=== PATIENT | male | born 1950 | race Caucasian/White ===

== ENCOUNTER 2023-04-25 19:17 | Emergency (ER) | payer MEDICARE, SELFPAY ==
[2023-04-25 19:18] VITALS: BP 125/85; PULSE 76; RESP 16; TEMP 36.9; O2SAT 98; BMI 25.7
--- NOTE | 2023-04-25 19:36 | EDS_ITS ---
HPI History of Present Illness Chief Complaint: Upper Extremity Injury Narrative Narrative: 72-year-old male past medical history of hypercholesterolemia and benign prostatic hypertrophy presents with injury to his right middle finger that he sustained at around 10 AM, approximately 9 hours ago. He states that he was moving boulders to arrange them in a [place] for a fire pit, when he lifted a Day and it crushed his middle finger against another Day. He is right- hand dominant. He has pain and swelling mainly in the distal third of his right middle finger. He denies other injury. No laceration. He natacha taped his fingers together and took Tylenol approximately 1 hour prior to arrival. [facility] Medical History BPH (benign prostatic hyperplasia) High cholesterol Home Medications saw palmetto 160 mg capsule 160 mg PO DAILY 10/21/20 [History Last Taken Unknown] atorvastatin 10 mg tablet 10 mg PO DAILY 04/25/23 [History Last Taken Unknown] cholecalciferol (vitamin D3) 25 mcg (1,000 unit) capsule (Vitamin D3) 25 mcg PO QODAY 04/25/23 [History Last Taken Unknown] finasteride 5 mg tablet 5 mg PO DAILY 04/25/23 [History Last Taken Unknown] omega 4-zsk-jky-fish oil 1,200 mg (144 mg-216 mg) capsule (Fish Oil) 1 cap PO DAILY 04/25/23 [History Last Taken Unknown] tamsulosin 0.4 mg capsule 0.4 mg PO DAILY 04/25/23 [History Last Taken Unknown] Allergy/AdvReac Type Severity Reaction Status Date / Time Penicillins Allergy Intermediate unknown Verified 04/25/23 19:21 Surgical History H/O colonoscopy H/O prostate biopsy Social History Smoking Status: Never smoker alcohol intake: current alcohol intake frequency: a few times a month ROS ROS ED ROS Narrative Constitutional: No fever, no chills. HEENT: No sore throat. No neck pain. No loss of vision. No rhinorrhea. Cardiovascular: No chest pain. No palpitations. No pedal edema. Respiratory: No cough, no shortness of breath. Abdominal: No abdominal pain. No nausea. No vomiting. Genitourinary: No dysuria. No hematuria. Musculoskeletal: No myalgias. Right middle finger pain, swelling, and bruising. Neurologic: No headaches. No dizziness. No lightheadedness. Skin: No rash. No change in color. Psychiatric: No depression. No anxiety. EXAM Physical Exam Narrative Exam Narrative: Afebrile. Vital signs noted. HEENT: Normocephalic. Atraumatic. PERRL, EOMI. Neck soft and supple. No point tenderness or step off. Cardiovascular: Regular rate and rhythm. No murmurs, rubs, or gallops appreciated. Respiratory: No tachypnea. Lungs clear to auscultation bilaterally. Gastrointestinal: Abdomen soft, nontender, with normoactive bowel sounds. No rebound or guarding. Neurological: Awake. Alert. Nonfocal, nonlateralizing. Skin: No rash. Normal color. No pallor. Musculoskeletal: No pedal edema. Positive tenderness to palpation right middle finger distal and middle phalanx with noted ecchymosis and swelling. Range of motion at DIP joint is limited secondary to swelling and pain. No subungual hematoma noted. Good capillary refill. No metacarpal tenderness. Palpable radial pulse. Const Vital Signs: 04/25/23 19:18 Temperature 98.5 F Temperature Source Temporal Pulse Rate 76 Respiratory Rate 16 Blood Pressure 125/85 H Blood Pressure Mean 98 Pulse Ox 98 MDM MDM MDM Narrative Medical decision making narrative: Concern is for finger contusion versus fracture. Patient has already taken analgesics. X-rays were obtained of the right middle finger in 3 views and interpreted by myself independently. There is evidence of, noted tuft fracture. I reviewed the radiology report which confirms my independent interpretation. He was placed in an aluminum foam splint and told to continue ice and elevation at home. He was given an ice pack for comfort and he will take [id number] analgesics. He declined narcotic pain medications. He was referred to the orthopedic surgeon on-call for follow-up within the next week. I feel he can be discharged safely home with follow-up and that he does not require observation. Disposition is discharged home in stable condition. Discharge Plan Triage Chief Complaint: Upper Extremity Injury ED Provider: Saulo Trent Dx/Rx/DC Orders Clinical Impression: Closed fracture of tuft of distal phalanx of finger, Crushing injury of distal finger Instructions: ED Crush Injury, Hand, ED Fracture, Finger, Closed Prescriptions: No Action saw palmetto 160 mg capsule 160 mg PO DAILY Rx Instructions: give with meal/snack atorvastatin 10 mg tablet 10 mg PO DAILY Patient Comments: TAKE 1 TABLET BY MOUTH EVERY DAY tamsulosin 0.4 mg capsule 0.4 mg PO DAILY Patient Comments: TAKE 1 CAPSULE BY MOUTH EVERY DAY finasteride 5 mg tablet 5 mg PO DAILY Patient Comments: TAKE 1 TABLET BY MOUTH EVERY DAY cholecalciferol (vitamin D3) [Vitamin D3] 25 mcg (1,000 unit) capsule 25 mcg PO QODAY omega 3-osy-igk-fish oil [Fish Oil] 1,200 (144-216) mg capsule 1 cap PO DAILY Primary Care Provider: RADHA GARICA Referrals: Cb Funes MD [[facility] Staff - Active Staff] - 3-5 Days [facility] Doctor,Out of [Non-Staff] - Disposition Disposition: Home, Self Care
--- NOTE | 2023-04-25 19:39 | RAD_ITS ---
INDICATION: trauma, pain -- 3rd digit/middle finger EXAMINATION/TECHNIQUE: X-RAY - RIGHT HAND XR Fingers 3 VIEWS COMPARISON: FINDINGS: SOFT TISSUES: No soft tissue swelling or gas. No radiopaque foreign body. BONES/JOINTS: There is a comminuted fracture at the tuft of the distal phalanx of the third finger.. Normal alignment. Preservation of the joint space.. No sclerotic or destructive changes observed. RAD/Finger(s) Min 2 Views IMPRESSION: Distal phalangeal fracture of the third finger.. Electronically Signed: Ernst Hinds DO at 20:36 EDT Reading Location ID and State: [facility] / [place] Tel [phone], Service support ,
== END 2023-04-25 20:55 | disposition home or self-care (01) ==
LOC: ED 19:56
PROVIDERS: Emergency Provider Emergency Medicine; Visit Provider Emergency Medicine
DX: S62.662A Nondisplaced fracture of distal phalanx of right middle finger, initial encounter for closed fracture (principal); E78.00 Pure hypercholesterolemia, unspecified; Z79.899 Other long term (current) drug therapy; W23.2XXA Caught, crushed, jammed or pinched between a moving and stationary object, initial encounter
CPT/HCPCS: 73140; 99283

== ENCOUNTER → 2023-07-31 | Outpatient (CLI) | payer MEDICARE, SELFPAY ==
--- NOTE | 2023-07-31 12:38 | RAD_ITS ---
HISTORY: COUGH. TECHNIQUE: XR Chest 2 Views. COMPARISON: None. FINDINGS: CARDIOMEDIASTINAL BORDERS: Cardiac silhouette within normal limits in size. Mediastinal contour unremarkable. LUNGS: Mild left perihilar and right basilar opacity. PLEURA: No pleural effusion or pneumothorax seen. OSSEOUS STRUCTURES: Unremarkable. RAD/Chest PA and Lateral IMPRESSION: Mild left perihilar and right basilar opacities, which may be inflammatory or infectious. Electronically Signed: Sarah Dominguez MD at 11:20 EST ,
== END | disposition home or self-care (01) ==
DX: R05.9 Cough, unspecified (principal)
CPT/HCPCS: 71046